=== PATIENT | male | born 1945 ===

== ENCOUNTER 2023-07-08 06:37 | Day surgery (SDC) | payer OTHER, SELFPAY ==
[2023-07-08] VITALS (7 sets, daily range): BP systolic 125–146; BP diastolic 69–94; BMI 26.6
== END 2023-07-08 18:08 | disposition home or self-care (01) ==
LOC: GI 06:37
PROVIDERS: ATTENDING PHYSICIAN Internal Medicine Gastroenterology
DX: C7A.8 Other malignant neuroendocrine tumors (principal); K22.89 Other specified disease of esophagus; K31.7 Polyp of stomach and duodenum
CPT/HCPCS: 43254; 43259; 88305; 88341; 88342

== ENCOUNTER → 2023-09-10 07:48 | Outpatient (REF) | payer OTHER, SELFPAY | LOC: PET 07:48 | PROVIDERS: ATTENDING PHYSICIAN Internal Medicine Hematology & Oncology | DX: C7A.8 Other malignant neuroendocrine tumors (principal) | CPT/HCPCS: 78815 ==